=== PATIENT | male | born 1940 | race Caucasian/White ===

== ENCOUNTER 2020-09-28 15:38 | Emergency (ER) | payer OTHER ==
[~2020-09-28] VITALS: Ht 170.2 cm; Wt 70.3 kg
[~2020-09-28 15:38] MED LIST: AMOX1TAB12 PO; LEVAQUIN750 MG PO; MUPIROCIN15 GM TP
[2020-09-28] MEDS ORDERED: LOSARTAN-HCTZ1 EAC1 PO (16:06)
== END 2020-09-28 20:35 | disposition home or self-care (01) ==
LOC: ER 15:38
DX: R42 Dizziness and giddiness (principal); Z03.818 Encounter for observation for suspected exposure to other biological agents ruled out

== ENCOUNTER 2021-02-15 22:10 | Emergency (ER) | payer OTHER ==
[~2021-02-15] VITALS: Ht 170.2 cm; Wt 68.5 kg
[~2021-02-15 22:10] MED LIST changes: +LOSARTAN-HCTZ1 EAC1 PO; +NABUMETONE750 MG PO
[2021-02-15] MEDS ORDERED: DAFLONEX-XL 11300 MG PO (22:46)
[2021-02-15] MEDS ORDERED: PYRIDOXINE HCL100 MG PO (22:46)
== END 2021-02-16 | disposition left against medical advice (07) ==
LOC: ER 22:10
DX: Z53.20 Procedure and treatment not carried out because of patient's decision for unspecified reasons (principal)

== ENCOUNTER 2021-04-01 08:01 | Outpatient (CLI) | payer OTHER ==
[~2021-04-01 08:01] MED LIST changes: +DAFLONEX-XL 11300 MG PO; +PYRIDOXINE HCL100 MG PO
== END 2021-04-01 08:06 | disposition home or self-care (01) ==
LOC: NUCLEAR 08:01
PROVIDERS: ATTEND Internal Medicine Cardiovascular Disease
DX: Q21.0 Ventricular septal defect (principal); I50.1 Left ventricular failure, unspecified
CPT/HCPCS: 78452; 93017; A9500; J0153

== ENCOUNTER 2022-10-09 14:08 | Outpatient (CLI) | payer OTHER | END 2022-10-09 14:17 | disposition home or self-care (01) | LOC: RAD 14:08 | DX: M54.51 Vertebrogenic low back pain (principal) ==

== ENCOUNTER 2024-02-27 07:57 | Outpatient (CLI) | payer OTHER | END 2024-02-27 08:01 | disposition home or self-care (01) | LOC: RX STUDY 07:57 | PROVIDERS: ATTEND Otolaryngology | DX: R10.13 Epigastric pain (principal) ==

== ENCOUNTER 2024-05-08 14:17 | Outpatient (CLI) | payer OTHER | END 2024-05-08 14:20 | disposition home or self-care (01) | LOC: RAD 14:17 | PROVIDERS: ATTEND Podiatrist Foot Surgery | DX: M20.41 Other hammer toe(s) (acquired), right foot (principal); M20.42 Other hammer toe(s) (acquired), left foot ==